=== PATIENT | female | born 1990 | race Caucasian/White ===

== ENCOUNTER 2022-06-27 11:45 | Outpatient (CLI) | payer BC, OTHER, SELFPAY ==
[2022-06-27 13:40] LABS: Chloride* 103 mmol/L (96-114)
[2022-06-27 13:41] LABS: Potassium* 4.1 mmol/L (3.6-5.1); Sodium* 136 mmol/L (135-149)
[2022-06-27 13:43] LABS: Creatinine* 0.8 mg/dL (0.5-1.5); Estimated Glomerular Filt Rate 100 ml/min
[2022-06-27 13:44] LABS: Blood Urea Nitrogen* 13 mg/dL (5-24); Calcium* 8.8 mg/dL (8.4-10.6); Carbon Dioxide* 24 mmol/L (20-32); Glucose* 82 mg/dL (60-115)
[2022-06-27 13:47] LABS: Basophils Absolute Auto 0.03 K/uL (0.00-0.30); Basophils Percent Auto 0.5 % (0.0-3.0); Eosinophils Absolute Auto 0.19 K/uL (0.00-0.50); Eosinophils Percent Auto 2.9 % (0.0-7.0); Hematocrit 39.2 % (33.0-51.0); Hemoglobin* 13.1 gm/dL (12.0-16.0); Immature Granulocytes Abs Auto 0.01 K/uL (0.00-0.30); Lymphocytes Absolute Auto 2.57 K/uL (0.90-2.90); Lymphocytes Percent Auto 39.1 % (20-44); Mean Corpuscular HGB Conc 33 gm/dL (32-36); Mean Corpuscular Hemoglobin 30 pg (26-34); Mean Corpuscular Volume 91 fL (80-100); Monocytes Percent Auto 5.8 % (0.0-11.0); Neutrophils Absolute Auto 3.39 K/uL (1.7-7.0); Neutrophils Percent Auto 51.5 % (42.0-72.0); Platelet Count* 243 K/uL (140-440); Red Blood Count 4.31 m/uL (4.00-5.20); White Blood Count* 6.57 K/uL (4.50-11.00)
[2022-06-27 13:49] LABS: C Reactive Protein* < 0.5 mg/dL (0.5-1.0)
[2022-06-27 13:56] LABS: Slide Review Reflex No
[2022-06-28 16:54] LABS: Rheumatoid Factor < 10 IU/mL (0-14)
[2022-06-29 06:56] LABS: Anti-Nuclear Ab(ANA)IgG ELISA None Detected (None Detected)
== END 2022-06-27 11:46 | disposition home or self-care (01) ==
PROVIDERS: PCP Family Medicine; Visit Provider Family Medicine
DX: R55 Syncope and collapse (principal); M25.50 Pain in unspecified joint; H53.2 Diplopia
CPT/HCPCS: 80048; 84443; 85025; 86039; 86140; 86431

== ENCOUNTER 2023-11-12 08:22 | Outpatient (CLI) | payer BC, SELFPAY | END 2023-11-12 08:23 | disposition home or self-care (01) | PROVIDERS: PCP Family Medicine; Visit Provider Family Medicine | DX: Z13.220 Encounter for screening for lipoid disorders (principal); R10.9 Unspecified abdominal pain | CPT/HCPCS: 80053; 80061 ==

== ENCOUNTER 2024-01-20 10:11 | Emergency (ER) | payer BC, SELFPAY ==
[2024-01-20 10:35] VITALS: BP 120/84; PULSE 90; RESP 18; TEMP 37.2; O2SAT 98; BMI 29.2
--- NOTE | 2024-01-20 11:33 | ED.GENADULT ---
HPI - General Adult General Date Seen: 01/20/24 Chief complaint: Abdominal Pain Stated complaint: right side abdominal pain,left side facial numbnes Time Seen by Provider: 01/20/24 11:12 Source: patient, RN notes reviewed and old records reviewed Mode of arrival: ambulatory Limitations: no limitations History of Present Illness HPI narrative: Patient is a 33-year-old woman who is here for a 2nd opinion regarding abdominal pain. She says that she had onset of what she thought was an appendix attack 8 days ago. She says she was seen at [facility] ER, had a CT scan, was told that maybe she had an ovarian cyst as the CT was normal, and was discharged. She had recurrence of right-sided abdominal pain on Saturday, which she says she has difficulty pinpointing exactly where in her right abdomen it was most severe but it was severe. She presented to the [facility] ER again, says that the CT was repeated. She also had a pelvic ultrasound. She was told that her appendix looked fine, ovaries were normal. She was told that her ?kidneys looked bad and that liver function tests were abnormal, but she says that she is unclear with the diagnosis was or what her follow-up was supposed to be. She said it was ?a terrible visit. She has continued to have some abdominal pain underneath her ribcage on the right. She is very concerned about possible problems with her liver or kidneys. She called her clinic today, she sees Dr. Monzon here, and they recommended that she be seen again in a different ER. She has not had vomiting or diarrhea, fevers, difficulty breathing or cough. She says that last night she developed numbness in a line kind of running along her temporal region on the left. She has headache which is mild, she gets migraines and typically takes ibuprofen and Tylenol if it is bad but this is not even bad enough to warrant that. She has had no rashes or facial weakness. Related Data Previous Rx's Medication Instructions Recorded bupropion HCl 300 mg 24 hr tablet, 300 mg PO QAM #90 tabs 11/12/23 extended release (Wellbutrin XL) lorazepam 1 mg tablet 1 mg PO TID PRN anxiety #20 tabs 12/13/23 Allergies Allergy/AdvReac Type Severity Reaction Status Date / Time Sulfa (Sulfonamide Allergy Intermediate Hives Verified 01/20/24 10:46 Antibiotics) Review of Systems Status of ROS: Reports: 6 or more systems reviewed and unremarkable except as noted in History and below PFSH PFS Medical History Right lateral epicondylitis ?M77.11 - Lateral epicondylitis, right elbow (ICD-10) Fibromyalgia ?M79.7 - Fibromyalgia (ICD-10) BRYSON (generalized anxiety disorder) ?F41.1 - Generalized anxiety disorder (ICD-10) Demyelinating disease ?G37.9 - Demyelinating disease of central nervous system, unspecified (ICD-10) History of methicillin resistant Staphylococcus aureus infection (07/23/19) ?Z86.14 - Personal history of Methicillin resistant Staphylococcus aureus infection (ICD-10) Surgical History History of elbow surgery (1995) ?Z98.890 - Other specified postprocedural states (ICD-10) Family History Family/Other Type 2 diabetes mellitus Multiple sclerosis Mother Multiple sclerosis Social History Narrative: , 3 kids, non-smoker, rare EtOH What is your current living situation?: I presently have a place to live Problems where you live: no known problems In the past 12 months, utilities in danger of being shut off: no In past 12 months, lack of transportation kept you from medical appts, meetings, work, or getting things needed for daily living: no In the past 12 mos, have been you worried that your food would run out before you had money to buy more?: never true In the past 12 mos, the food you bought just didn't last and you didn't have money to buy more?: never true Smoking Status: Never smoker How often does anyone, including family, friends and others, physically hurt you: never How often does anyone, including family, friends and others, insult or talk down to you: rarely How often does anyone, including family, friends and others, threaten you with harm: never How often does anyone, including family, friends and others, scream or curse at you: never Little interest or pleasure in doing things: not at all Feeling down, depressed, or hopeless: several days Exam Narrative: Exam Narrative: Vital signs as noted above. In general, an alert, well-appearing patient. Head: Normocephalic, atraumatic. Eyes: Pupils are equal reactive. Extraocular movements are full. Conjunctivae are normal. ENT: Mucous membranes are moist. Throat is normal. Neck: Supple without lymphadenopathy. Heart: Regular rate and rhythm. No murmur or rub. Lungs: Clear bilaterally. No increased work of breathing, crackles or wheezes. No CVA tenderness. Abdomen: Soft and nondistended. She has some tenderness to palpation in the right upper quadrant, no rebound guarding or rigidity, negative Dee's. Extremities: Well perfused. No edema. No calf tenderness. Pulses intact. Neurologic: Patient is alert and oriented to person and place. Speech is fluent. Face is symmetric. Sensation intact to light touch. Moves all extremities equally. Affect: Anxious appear Skin: Warm and dry. Well perfused. No rashes. Const: Vital Signs, click to edit/add: Vital Signs - 24 hr 01/20/24 10:35 Temperature 99.0 F Pulse Rate [Right Pulse Oximeter] 90 Respiratory Rate 18 Blood Pressure [Ri ght Upper Arm] 120/84 Pulse Oximetry 98 Oxygen Delivery Me thod Room Air Documenting provider has reviewed patient's vital signs: yes Course Course ED Course: Will try to get records from [place] from her visit on Saturday to see exactly what she is talking about with her liver and kidneys. For now, will repeat some labs, CE were her LFTs and renal function are today. Doubt need for additional imaging based on [address] scans and ultrasound in the past week. I reviewed her labs from [place], overall these are normal with the exception of elevated liver enzymes. Her UA had 11-25 white blood cells, many bacteria but also many squames. A repeat UA today is entirely normal. Her creatinine was 1 which is outside of their normal reference range but certainly not concerning. Looking back, she had hepatitis a couple of years ago which time she had significant elevations of her AST and ALT. She has had a CT scan twice and the liver has been noted to be normal. She does not have a gallbladder. She does have an elevated ALT today of 393. AST is 116. Bilirubin and alk-phos are normal. CRP is normal, lipase is normal. INR is normal. Hemoglobin is 13. I reviewed all of her labs including the labs from [place] as well as today's labs with her. I do not think there is a lot of benefit to additional imaging today given normal findings in the past week. I do think she would benefit from follow-up with GI. It does not seem as if she has ever had follow-up with them although she may well have seen them when she was in the hospital at [place] 2 years ago. I do not have those records and she does not know who she saw. I did add on a hepatitis panel, no obvious risk factors in her history for hepatitis a, they presumably would have check for B and C a couple of years ago. She denies significant recent Tylenol. She does not drink significantly, and the pattern of elevations would be atypical for alcoholic liver disease. I have given her the phone number for Dr. Lee [facility] and I have asked her to call tomorrow to arrange for follow-up. If she has severe worsening pain, high fevers, jaundice or scleral icterus, return to the emergency department. She seems comfortable with that plan. Given that her headache is not severe enough to warrant even ibuprofen or Tylenol, I think the likelihood of this being anything serious is low. She is primarily concerned about her liver enzymes. Vital Signs Vital signs: Initial Vital Signs Temperature 99.0 F 01/20/24 10:35 Temperature Source Temporal Artery Scan 01/20/24 10:35 Pulse Rate 90 01/20/24 10:35 Pulse Rhythm Regular 01/20/24 10:35 Respiratory Rate 18 01/20/24 10:35 Blood Pressure 120/84 01/20/24 10:35 Blood Pressure Mean 96 01/20/24 10:35 Blood Pressure Position Sitting 01/20/24 10:35 Pulse Oximetry 98 01/20/24 10:35 Oxygen Delivery Method Room Air 01/20/24 10:35 Vital Signs Temperature 99.0 F 01/20/24 10:35 Pulse Rate 90 01/20/24 10:35 Respiratory Rate 18 01/20/24 10:35 Blood Pressure 120/84 01/20/24 10:35 Pulse Oximetry 98 01/20/24 10:35 Oxygen Delivery Method Room Air 01/20/24 10:35 Temperature 99.0 F 01/20/24 10:35 Pulse Rate 90 01/20/24 10:35 Respiratory Rate 18 01/20/24 10:35 Blood Pressure 120/84 01/20/24 10:35 Pulse Oximetry 98 01/20/24 10:35 Oxygen Delivery Method Room Air 01/20/24 10:35 Medical Decision Making Lab Data Labs: Lab Results 01/20/24 01/20/24 01/20/24 Range/Units 11:00 11:01 11:33 WBC 4.96 (4.50-11.00) K/uL RBC 4.32 (4.00-5.20) m/uL Hgb 13.0 (12.0-16.0) gm/dL Hct 38.0 (33.0-51.0) % MCV 88 (80-100) fL MCH 30 (26-34) pg MCHC 34 (32-36) gm/dL RDW Coeff of Ken 11.9 (11.5-15.5) % Plt Count 248 (140-440) K/uL Neut % (Auto) 55.8 (42.0-72.0) % Lymph % (Auto) 34.3 (20-44) % Howell % (Auto) 6.7 (0.0-11.0) % Eos % (Auto) 2.6 (0.0-7.0) % Baso % (Auto) 0.4 (0.0-3.0) % Neut # (Auto) 2.77 (1.7-7.0) K/uL Lymph # (Auto) 1.70 (0.90-2.90) K/uL Howell # (Auto) 0.30 (0.00-0.90) K/UL Eos # (Auto) 0.13 (0.00-0.50) K/uL Baso # (Auto) 0.02 (0.00-0.30) K/uL Abs Immat Gran (auto) 0.01 (0.00-0.30) K/uL Imm/Tot Granulo (auto) 0.2 % INR 0.93 (0.91-1.10) Sodium 138 (135-149) mmol/L Potassium 3.7 (3.6-5.1) mmol/L Chloride 108 (96-114) mmol/L Carbon Dioxide 23 (20-32) mmol/L Anion Gap 7 (7-15) mEq/L BUN 10 (5-24) mg/dL Creatinine 0.8 (0.5-1.5) mg/dL Estimated Creat Clear 85.56 Estimated GFR 99 ml/min Glucose 77 (60-115) mg/dL Calcium 8.9 (8.4-10.6) mg/dL Total Bilirubin 0.5 (0.1-1.5) mg/dL Direct Bilirubin 0.2 (0.0-0.5) mg/dL AST 116 H (12-35) U/L ALT 393 H (4-35) U/L Alkaline Phosphatase 87 (40-150) U/L C-Reactive Protein 0.7 (0.5-1.0) mg/dL Total Protein 7.0 (6.0-8.3) g/dL Albumin 4.2 (3.3-5.0) g/dL Lipase 97 (23-300) U/L Urine Color Light yellow Cancelled (Yellow) Urine Appearance Slightly Cloudy A Cancelled (Clear) Urine pH 6.5 Cancelled (5.0-8.5) Ur Specific [place] 1.015 Cancelled (1.000-1.030) Urine Protein Negative Cancelled (Negative) Urine Glucose (UA) Negative Cancelled (Negative) Urine Ketones Negative Cancelled (Negative) Urine Blood Negative Cancelled (Negative) Urine Nitrite Negative Cancelled (Negative) Urine Bilirubin Negative Cancelled (Negative) Urine Urobilinogen 1.0 Cancelled (0.2-1.0) Ur Leukocyte Esterase Trace A Cancelled (Negative) Urine RBC 0-2 (0-2) Urine WBC 0-2 (0-5) Ur Squamous Epith Cells Moderate A (None-Few) Urine Bacteria Few A (None) Urine HCG, Qual Negative (Negative) Discharge Plan Discharge Clinical Impression: Hepatitis Patient Disposition: Home, Self-Care Condition: Stable Additional Instructions: I would recommend that you call to arrange follow-up with Dr. Lee, who is a health promotion officer here in [place]. The phone number for his nurse is [phone]. You can call this number tomorrow, he is not in clinic today. I was not able to talk with him, but I did talk with his nurse about seeing you in follow-up. If at any time you have severe pain, high fevers, yellowing of your skin her eyes, return to the emergency department. Ibuprofen okay, avoid Tylenol for now. Prescriptions: No Action bupropion HCl [Wellbutrin XL] 300 mg tablet extended release 24 hr 300 mg PO QAM Qty: 90 1RF lorazepam 1 mg tablet 1 mg PO TID PRN (Reason: anxiety) Qty: 20 0RF Follow Up/Referrals: Remi Monzon MD [Primary Care Provider] - Stand Alone Forms: [employer] Info Instructions
[2024-01-20 11:39] LABS: Appearance Urine Slightly Cloudy (Clear); Bilirubin Urine Negative (Negative); Blood Urine Negative (Negative); Color Urine Light yellow (Yellow); Glucose Urine Negative (Negative); Ketones Urine Negative (Negative); Specific Gravity Urine 1.015 (1.000-1.030); pH Urine 6.5 (5.0-8.5)
[2024-01-20 11:40] LABS: Bacteria Urine Few; Leukocyte Esterase Urine Trace (Negative); Nitrite Urine Negative (Negative); Protein Urine Negative (Negative); RBC Urine 0-2 (0-2); Squamous Epithelial Cell Urine Moderate (None-Few); WBC Urine 0-2 (0-5)
[2024-01-20 11:41] LABS: Basophils Absolute Auto 0.02 K/uL (0.00-0.30); Basophils Percent Auto 0.4 % (0.0-3.0); Eosinophils Absolute Auto 0.13 K/uL (0.00-0.50); Eosinophils Percent Auto 2.6 % (0.0-7.0); Immature Granulocytes Abs Auto 0.01 K/uL (0.00-0.30); Immature Granulocytes Pct Auto 0.2 %; Lymphocytes Percent Auto 34.3 % (20-44); Mean Corpuscular HGB Conc 34 gm/dL (32-36); Mean Corpuscular Hemoglobin 30 pg (26-34); Mean Corpuscular Volume 88 fL (80-100); Monocytes Percent Auto 6.7 % (0.0-11.0); Neutrophils Absolute Auto 2.77 K/uL (1.7-7.0); Neutrophils Percent Auto 55.8 % (42.0-72.0); Platelet Count* 248 K/uL (140-440); RDW Coefficient of Variation % 11.9 % (11.5-15.5); Red Blood Count 4.32 m/uL (4.00-5.20); White Blood Count* 4.96 K/uL (4.50-11.00)
[2024-01-20 11:42] LABS: Ur HCG Qualitative* Negative (Negative)
[2024-01-20 11:42] LABS: Slide Review Reflex No
[2024-01-20 11:54] LABS: Albumin* 4.2 g/dL (3.3-5.0); Chloride* 108 mmol/L (96-114)
[2024-01-20 11:55] LABS: Potassium* 3.7 mmol/L (3.6-5.1); Sodium* 138 mmol/L (135-149)
[2024-01-20 11:57] LABS: Alanine Aminotransferase* 393 U/L (4-35); Alkaline Phosphatase* 87 U/L (40-150); Aspartate Amino Transferase* 116 U/L (12-35); Bilirubin Direct* 0.2 mg/dL (0.0-0.5); Bilirubin Total* 0.5 mg/dL (0.1-1.5); Creatinine* 0.8 mg/dL (0.5-1.5); Est. Creatinine Clearance* 85.56; Estimated Glomerular Filt Rate 99 ml/min; Lipase* 97 U/L (23-300)
[2024-01-20 11:58] LABS: Anion Gap 7 mEq/L (7-15); Blood Urea Nitrogen* 10 mg/dL (5-24); Carbon Dioxide* 23 mmol/L (20-32); Glucose* 77 mg/dL (60-115)
[2024-01-20 11:59] LABS: Calcium* 8.9 mg/dL (8.4-10.6)
[2024-01-20 12:01] LABS: C Reactive Protein* 0.7 mg/dL (0.5-1.0)
[2024-01-20 12:42] LABS: INR 0.93 (0.91-1.10); Prothrombin Time 13.1 Seconds
[2024-01-21 17:45] LABS: Hep A Ab, IgM Negative (Negative); Hep B Core Ab, IgM Negative (Negative); Hep B Surface Antigen Negative (Negative); Hep C Ab by CIA Index 0.05 IV; Hep C Ab by CIA Interp Negative (Negative)
== END 2024-01-20 13:04 | disposition home or self-care (01) ==
PROVIDERS: Emergency Provider Emergency Medicine; PCP Family Medicine
DX: K75.9 Inflammatory liver disease, unspecified (principal)
CPT/HCPCS: 36415; 80048; 80074; 80076; 81001; 81003; 81025; 83690; 85025; 85610; 86140; 87086; 99283; 99284

== ENCOUNTER 2024-10-02 13:34 | Outpatient (CLI) | payer BC, SELFPAY ==
--- OUTSIDE RECORDS SUMMARY | 2024-10-02 13:37 | XMS_ITS | Referral Summary ---
Author Organization [facility] Address [address] [place] [address] Care Team Providers Care Curb And Gutter Laborer Name Role Phone None Reported, Pcp Primary Care Provider Unavail able Source Comments Patient records contain information from all sites at [facility]. For routine questions regarding patient records, call [phone] during business hours, M-F 8:00 AM - 5:00 PM Central Time. Record requests for emergency care only can be directed to [phone] at any time.[facility] Encounters Date Type Department Care Team Description 09/11/2024 4:18 AM CDT - 09/11/2024 5:32 AM CDT Emergency [facility] [address] [place] [phone] Discharge Disposition: Home or Self Care 07/06/2024 4:00 PM CDT Office Visit Department of Obstetrics and Gynecology in [place], [place] [address] [phone] Jaylen Buchanan Jr., M.D. Follow Up Examination Postoperative Visit (Primary Dx) from Last 3 Months Allergies Active Allergy Reactions Criticality Noted Date Comments Cephalexin Hives (Reselect Reaction) 01/30/2007 Sulfa (Sulfonamide Antibiotics) Hives (Reselect Reaction) 04/08/2012 Medications * This document contains information received from the source organization and may not represent a complete record from that organization. buPROPion XL (WELLBUTRIN XL) 300 mg 24 hr tablet Take 1 tablet by mouth every morning. 11/12/2023 Active UNABLE TO FIND 1 each daily. Med Name: hair, skin and nails Active ibuprofen (MOTRIN) 600 mg tablet TAKE 1 TABLET BY MOUTH EVERY 6 HOURS MAX OF 3200 MG IN 24 HOURS Active Active Problems Patient Care Coordination No te Formatting of this note migh t be different from the original. OB education completed. Pre-reg completed at [facility]. LMP:10/29/18 EDC:08/02/19 (changed by 8 4/7 wk us) Brandon provider: Carlos applications analyst provider FOB involved: Sera Tee Rubella Equivocal - Plan MMR 2 History of MRSA labial abscess 06/02/2015 and MRSA abdominal wall abscess 09/06/2015 - Need negative culture x 2 - (02/17/2019) MRSA culture: negative Buchanan patient OB labs O RH factor:Positive Antibody screen: Negative HBsAg: Negative HIV: Negative Syphilis: Negative Rubella: Equivocal TSH: 0.9 Hgb: 12.7 Hct: 37.4 Platelets: 245 Chlamydia: Negative Gonorrhea: Negative MRSA culture: Negative (02/17/2019) Pap smear: NILM (11/06/2016) Glucose screen: GBS culture: Problem Noted Date Diagnosed Date Abdominal Pain 04/03/2024 Demyelinating Disease Central Nervous System Assessment & Plan (04/03/2024 10:29 AM CDT): Per MRI results on 07/09/2022: Impression: 1. No acute intracranial abnormality. 2. Multiple scattered foci of T2 prolongation in the supratentorial subcortical matter are nonspecific. Differential considerations include sequela of migraine headaches,, inflammation or demyelination. Patient states her mother has myelin oligodendrocyte glycoprotein (MOG), so there was concern she may have it. Testing were initiated, but she stopped going because of too many testing demands. Epicondylitis Lateral Right 04/03/2024 Fibromyalgia 04/03/2024 Palpitations 04/03/2024 Anxiety 04/03/2024 Depression Major Recurrent Full Remission 2023 Abnormal Pap Smear Cervix 03/03/2024 Overview (04/27/2024): Ascus with positive HPV but-16 18 and 45. Previous Pap smear had been negative with positive HPV but negative high-risk subtypes. 03/03/2024: Colposcopy shows 1 area of mildly white epithelium with some possible increased vascularity versus a nabothian cyst. This is biopsied. Rest of transformation zone appears to be normal. We will contact patient with biopsy results no intercourse for 1 week. 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 Neg ECC and external margins. 04/13/24: healing well. TLH with TOT on 04/14/24. No residual dysplasia on path. Needs continued paps. Sore Throat 11/27/2021 Hypokalemia 02/26/2021 Leukopenia 02/26/2021 Pain Pelvic Female 01/23/2021 Overview (03/03/2024): Patient would longstanding history of pelvic pain we have discussed multiple options with her. Also stress incontinence and heavy bleeding. Will try continuous therapy control pills for the next month or so and see how she does. Also more aggressive with Anaprox pain medication. Surgical options include laparoscopy with endometrial ablation and mid urethral sling probable placement of IUD. The other option would be a laparoscopy with hysterectomy. She will follow up in 1 month and we will assess these possibilities. Patient seems comfortable with this plan and will call us with any concerns. Risks and benefits as well as possible alternative of hysterectomy of minimally invasive surgery have been discussed. Abnormal pap> colposcopy 03/03/24. Tentative surgery as above scheduled with TOT for 04/15/24. 03/03/2024 appointment: Colposcopy done. Patient on continuous control pills and has been doing somewhat better. She still has anterior pelvic pain with intercourse fairly consistently. She may wish to delay surgery due to her being busy depending on results of colposcopy and how she is doing with control pills. Options include mid urethral sling and staying on control pills versus a diagnostic laparoscopy with mid urethral sling versus diagnostic laparoscopy with mid urethral sling and global endometrial ablation. Still option for total laparoscopic hysterectomy as is currently scheduled depending on patient's symptoms and results of colposcopy. Incontinence Urinary Stress Female 01/23/2021 Overview (04/27/2024): Sling 04/14/24. 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 06/23/2019 Overview (02/16/2019): Right labia abscess with +MRSA 06/02/2015 Abdominal skin abscess with culture +MRSA 09/06/2015 Abscess Labia 06/05/2015 02/16/2019 Overview (02/16/2019): Right labia abscess with +MRSA culture Anxiety Disorder Unspecified 04/08/2012 02/16/2019 Dermatitis Atopic 12/05/2011 02/16/2019 Cervicitis Chlamydia 05/11/2011 019 Depression Anxiety 03/29/2009 9 Iliotibial Band Syndrome 03/24/200711/2018 Immunizations Name Administration Dates Next Due 4vHPV (discontinued) 03/31/2008,01/30/2007 9vHPV 09/23/2012,03/31/2008,01/30/2007 HepB Pediatric/Adolescent 02/12/2001,,08/12/2000,1999 HepB, Unspecified 02/12/2001,08/12/2000 Influenza TIV (IM) 09/23/2012 Influenza, Seasonal, Injectable 09/23/2012 Influenza, Unspecified 08/26/2013 MMR 07/24/2019,01/23/2014,08/12/2000 Td (Adult), adsorbed 10/05/2003 Td Preservative Free (TENIVA C, DECAVAC) 10/05/2003 Tdap 08/07/2019, 9,05/07/2018,2011 influenza vaccine quad (FLUZONE/FLUARIX) (6 months and older)(PF) 09/19/2022,09/03/2019,10/17/2018,2017,10/01/2016,09/22/2015,09/23/2012 Social History Tobacco Use Types Packs/Day Years Used Date Smoking Tobacco: Never Smokeless Tobacco: Never Tobacco Cessation:Counseling Given: Not Answered Alcohol Use Standard Drinks/Week Comments Yes 0 (1 standard drink = 0.6 oz pur e alcohol) 2 drinks a month [facility] Howbuyities Answer Date Recorded In the past 12 months has e [employer], gas, oil, or water [employer] threatened to shut off services in your home? No 01/27/2024 Humiliation, Afraid, Rape, and Kick questionnair e Answer Date Recorded Within the last year, have y ou been afraid of your partner or ex-partner? No 09/14/2022 Within the last year, have y ou been humiliated or emotionally abused in other ways by your partner or ex-partner? No Within the last year, have y ou been kicked, hit, slapped, or otherwise physically hurt by your partner or ex-partner? No 09/14/2022 Within the last year, have y ou been raped or forced to have any kind of sexual activity by your partner or ex-partner? No 09/14/2022 Social Connection and Isolation Panel [NHANES] A nswer Date Recorded In a typical week, how many times do you talk on the phone with family, friends, or neighbors? Once a week 09/14/20 How often do you get togethe r with friends or relatives? Once a week 09/14/2022 How often do you attend chur ch or anabaptism services? Never 09/14/2022 Do you belong to any clubs o r organizations such as sabianist groups, unions, fraternal or athletic groups, or school groups? Yes 09/14/2022 How often do you attend meet ings of the clubs or organizations you belong to? 1 to 4 times per year 09/14/2022 Are you , , di vorced, , never , or living with a partner? 09/14/2022 AUDIT-C Answer Date Recorded Q1: How often do you have a drink containing alc ohol? Monthly or less 09/14/2022 Q2: How many drinks containi ng alcohol do you have on a typical day when you are drinking? 3 or 4 09/14/2022 Q3: How often do you have si x or more drinks on one occasion? Never 09/14/2022 Overall Financial Resource Strain (CARDIA) Answe r Date Recorded How hard is it for you to pa y for the very basics like food, housing, medical care, and heating? Not hard at all 09/14/2022 PHQ-2 Answer Date Recorded PHQ-2 Score 3 06/17/2024 [facility] - Occupational Stress Questionnaire Answer Date Recorded Do you feel stress - tense, restless, nervous, or anxious, or unable to sleep at night because your mind is troubled all the time - these days? To some extent 09/14/2022 Exercise Vital Sign Answer Date Recorde d On average, how many days pe r week do you engage in moderate to strenuous exercise (like a brisk walk)? 3 days 01/27/2024 On average, how many minutes do you engage in exercise at this level? 30 min 01/27/2024 Hunger Vital Sign Answer Date Recorded Within the past 12 months, y ou worried that your food would run out before you got the money to buy more. Never true 01/27/20 24 Within the past 12 months, t he food you bought just didn't last and you didn't have money to get more. Never true 01/27/2024 PRAPARE - Transportation Answer Date Re corded In the past 12 months, has l ack of transportation kept you from medical appointments or from getting medications? No 01/16 In the past 12 months, has l ack of transportation kept you from meetings, work, or from getting things needed for daily living? No 01/27/2024 Depression Answer Date Recor ded PHQ-9 Total Score (max 27) 15 06/17 Nutrition Answer Date Recorded On average, how many serving s of fruits and vegetables do you eat per day (serving size is equal to 1 cup or approximately the size of a tennis ball)? 3-5 01/27/2024 Dental Answer Date Recorded Dental: Regular Dentist No 09/14/20 Employment Answer Date Recorded Employment status Employed and actively working without restrictions 01/27/2024 Housing Stability Answer Date Recorded What is your living situation today? I have a [facility] place to live 01/27/2024 Education Answer Date Recorded What is the highest level of school you have completed or the highest degree you have received? Some college, no degree 04/23/2019 Comments No Sex and Gender Information Value Date Recorded Sex Assigned at Female 09/14/2022 7:57 AM CDT Legal Sex Female 10:48 AM CORPORATE FITNESS PROGRAM COORDINATOR Gender Identity Female 01/26/2019 8:30 AM CDT Sexual Orientation Straight 01/26/2019 8: 30 AM CDT Last Filed Vital Signs Vital Sign Reading Time Taken Comments Blood Pressure 124/85 07/06/2024 3:26 PM CDT Pulse 90 07/06/2024 3:26 PM CDT Temperature 36.6 ??C (97.9 ??F) 05/04/2024 1 1:43 AM CDT Respiratory Rate 18 01/24/2024 10:2 3 PM CORPORATE FITNESS PROGRAM COORDINATOR Oxygen Saturation 98% 01/24/2024 8:30 PM CORPORATE FITNESS PROGRAM COORDINATOR Inhaled Oxygen Concentration - - Weight 79.7 kg (175 lb 11.3 oz) 07/06/2024 3:26 PM CDT Height 163.6 cm (5' 4.41) 04/03/2024 8:34 AM CD T Body Mass Index 29.78 04/03/2024 8:34 AM CDT Plan of Treatment Not on file Procedures Procedure Name Priority Date/Time Associated Diagnosis Comments HPV WITH GENOTYPING, PCR, THINPREP Routine 01/31/2024 1:14 PM CDT HCV AB SCRN W/REFLEX TO HCV PCR, S Routine 09/24/2022 7:26 AM CORPORATE FITNESS PROGRAM COORDINATOR Migraine Headache HIV-1/-2 AG AND AB SCREEN, PLASMA Routine 09/24/2022 7:25 AM CORPORATE FITNESS PROGRAM COORDINATOR Migraine Headache LIPID PANEL, S Routine 03/04/2014 2:40 PM CDT from Last 3 Months or Most Recently Relevant to Health Maintenance Results * (ABNORMAL) HPV with Genotyping, PCR, ThinPrep (01/31/2024 1:14 PM CDT) HPV with Genotyping, ThinPrep, PCR Positive(A) Negative 02/04/2024 11:38 AM CDT [facility] Comment: Positive for high risk HPV by nucleic acid amplification. Positive for one or more of the following high risk types: 16, 18, 31, 33, 35, 39, 45, 51, 52, 56, 58, 59, 66, and 68. See genotyping result. HPV High Risk type 16, PCR Negative Negative 02/04/2024 11:38 AM CDT [facility] HPV High Risk type 18/45, PCR Negative Negative 02/04/2024 11:38 AM CDT [facility] 01/31/2024 1:14 PM CDT 02/03/2024 7:19 AM CDT us Jaylen Buchanan Jr., M.D. LAB MICROBIOLOGY - GEN ERAL ORDERABLES Final Result [facility] [address] [place] [address], [facility] [address] [place] [address] * HCV Ab Scrn w/Reflex to HCV PCR, Serum (09/24/2022 7:26 AM CORPORATE FITNESS PROGRAM COORDINATOR) HCV Ab Screen, S Negative Negative 09/24/2022 12:01 PM CORPORATE FITNESS PROGRAM COORDINATOR [facility] Comment:Layakz-qw-eabdhd rat io is <1.00. Blood (Blood, Venous) 09/24/2022 7:26 AM CORPORATE FITNESS PROGRAM COORDINATOR 09/24/2022 10:30 AM CORPORATE FITNESS PROGRAM COORDINATOR us Kassi Velázquez M.D. LAB MICROBIOLOGY - BLOOD OR DERABLES Final Result [facility] [address] [place] [id number] [facility] [address] [place] [id number] * HIV-1/-2 Ag and Ab Screen, Plasma (09/24/2022 7:25 AM CORPORATE FITNESS PROGRAM COORDINATOR) Pathologist [facility] HIV-1/-2 Ag and Ab Screen, P Negative Negative 09/24/2022 11:59 AM CORPORATE FITNESS PROGRAM COORDINATOR [facility] Comment: Negative result does not rule out HIV infection. If exposure to HIV infection occurred <14 days ago, contact the laboratory to request addition of HIV-1 RNA detection / quantification test (HIVQN). Blood (Blood, Venous) 09/24/2022 7:25 AM CORPORATE FITNESS PROGRAM COORDINATOR 09/24/2022 10:54 AM CORPORATE FITNESS PROGRAM COORDINATOR Kassi Velázquez M.D. LAB MICROBIOLOGY - BLOOD OR DERABLES Final Result [facility] [address] [place] [address] [facility] [address] [place] [address] * Lipid Panel (03/04/2014 2:40 PM CDT) [facility] Cholesterol, Total 161 0 - 200 MGDL POWERCHART HX HDL 59.0 40.0 - 60.0 MGDL POWERCHART Triglycerides 119 0 - 150 MGDL POWERCHART Calculated LDL 78 0 - 100 MGDL POWERCHART Blood 03/04/2014 2:40 PM CDT us Jaylen Buchanan Jr., M.D. LAB BLOOD ADD-ON Final Result POWERCHART from Last 3 Months or Most Recently Relevant to Health Maintenance Insurance [facility] Care Teams Curb And Gutter Laborer Relationship Specialty Start Date End Date None Reported, Pcp PCP - General Family Medicine 01/24/24
--- OUTSIDE RECORDS SUMMARY | 2024-10-02 13:37 | XMS_ITS | Encounter Summary ---
Author Organization [facility] Address [address] [place] [address] Care Team Providers Care Head Of Marketing Analytics Name Role Phone None Reported, Pcp Primary Care Provider Unavail able Reason for Visit * Reason Comments Eye Problem Encounter Details Date Type Department Care Team ([facility] st Contact Info) Description 09/11/2024 4:18 AM CDT - 09/11/2024 5:32 AM CDT Emergency [facility] [address] [place] [phone] Discharge Disposition: Home or Self Care Social History Tobacco Use Types Packs/Day Years Used Date Smoking Tobacco: Never Smokeless Tobacco: Never Alcohol Use Standard Drinks/Week Comments Yes 0 (1 standard drink = 0.6 oz pur e alcohol) 2 drinks a month [facility] Utilities Answer Date Recorded In the past 12 months has e [employer], gas, oil, or water [employer] threatened to shut off services in your [...] 09/14/2022 How often do you attend chur or latter day services? Never 09/14/2022 Do you belong to any clubs o r organizations such as pentecostalism groups, unions, fraternal or athletic groups, or [...] Answer Date Recorded PHQ-2 Score 3 06/17/2024 [facility] - Occupational Stress Questionnaire Answer Date [...] your living situation today? I have a [facility] place to live 01/27/2024 Education Answer Date Recorded What is the highest level of school you have completed or the highest degree you have received? 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 11/12/2023 ibuprofen (MOTRIN) 600 mg tablet TAKE 1 TABLET BY MOUTH EVERY 6 HOURS MAX OF 3200 MG IN 24 HOURS UNABLE TO FIND 1 each daily. Med Name: hair, skin and nails documented as of this encounter Plan of Treatment Not on file documented as of this encounter Visit Diagnoses Not on filedocumented in this encounter Additional Health Concerns Assessment Noted Time PHQ-9 Depression Total Score: 15 024 2:01 PM CDT documented as of this encounter Care Teams Head Of Marketing Analytics Relationship Specialty Start Date End Date None Reported, Pcp PCP - General Family Medicine 01/24/24 documented as of this encounter
--- OUTSIDE RECORDS SUMMARY | 2024-10-02 13:37 | XMS_ITS | Clinical Summary ---
Author Organization [facility] Address [address] [place] [address] Care Team Providers Care Senior Hardware Engineer Name Role Phone None Reported, Pcp Primary Care Provider Unavail able Source Comments Patient records contain information from all sites at [facility]. For routine questions regarding patient records, call [phone] during business hours, M-F 8:00 AM - 5:00 PM Central Time. Record requests for emergency care only can be directed to [phone] at any time.[facility] Allergies Active Allergy Reactions Criticality Noted Date [...] original. OB education completed. Pre-reg completed at [facility]. 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 Follow Up Examination Postoperative Visit (Primary Dx) from Last 3 Months Immunizations Name Administration Dates Next Due 4vHPV (discontinued) 03/31/2008,01/30/2007 9vHPV 09/23/2012,03/31/2008,01/30/2007 HepB Pediatric/Adolescent 02/12/2001,,08/12/2000,1999 HepB, Unspecified 02/12/2001,08/12/2000 Influenza TIV (IM) 09/23/2012 Influenza, Seasonal, Injectable 09/23/2012 Influenza, Unspecified 08/26/2013 MMR 07/24/2019,01/23/2014,08/12/2000 Td (Adult), adsorbed 10/05/2003 Td Preservative Free (TENIVA C, DECAVAC) 10/05/2003 Tdap 08/07/2019, 9,05/07/2018,2011 influenza vaccine quad (FLUZONE/FLUARIX) (6 months and older)(PF) 09/19/2022,09/03/2019,10/17/2018,2017,10/01/2016,09/22/2015,09/23/2012 Family History Medical History Relation Name Comments Asthma Daughter 1 [place] Lique No Known Problems Daughter 2 [place] Unknown Maternal Grandfather ? Thyroid dysfunction Maternal Grandmother Serina Other - Neurologic Mother Tiffany Myelin ol igodentocyte glycoprotein (MOG) Pancreatic cancer Paternal Grandfather Gino Diaz No Known Problems Son Tobin Relation Name Status Comments Daughter 1 [place] Lique Alive Daughter 2 [place] Alive Father Tad Alive Maternal Grandfather ? Maternal Grandmother Serina Mother Tiffany Alive Paternal Grandfather Gino Diaz Paternal Grandmother Liss Alive Sister Alessandra Alive Son Tobin Alive Social History Tobacco Use Types Packs/Day Years Used Date Smoking Tobacco: Never Smokeless Tobacco: Never Tobacco Cessation:Counseling Given: Not Answered Alcohol Use Standard Drinks/Week Comments Yes 0 (1 standard drink = 0.6 oz pur e alcohol) 2 drinks a month [facility] [employer] Answer Date Recorded In the past 12 months has e [employer], gas, oil, or water [employer] threatened to shut off services in your [...] friends, or neighbors? Once a week 09/14/20 22 How often do you get togethe r with friends or relatives? Once a week 09/14/2022 How often do you attend chur ch or methodist services? Never 09/14/2022 Do you belong to any clubs o r organizations such as druze groups, unions, fraternal or athletic groups, or [...] Answer Date Recorded PHQ-2 Score 3 06/17/2024 [facility] of Occupat ional Health - Occupational Stress [...] your living situation today? I have a [facility] place to live 01/27/2024 Education Answer Date Recorded What is the highest level of school you have completed or the highest degree you have received? Some college, no degree 04/23/2019 Comments No Sex and Gender Information Value Date Recorded Sex Assigned at Female 09/14/2022 7:57 AM CDT Legal Sex Female 10:48 AM CONTROLLER OPERATIONS AND HR MANAGER Gender Identity Female 01/26/2019 8:30 AM CDT Sexual Orientation Straight 01/26/2019 8: 30 AM CDT Last Filed Vital Signs Vital Sign Reading Time Taken Comments Blood Pressure 124/85 07/06/2024 3:26 PM CDT Pulse 90 07/06/2024 3:26 PM CDT Temperature 36.6 ??C (97.9 ??F) 05/04/2024 1 1:43 AM CDT Respiratory Rate 18 01/24/2024 10:2 3 PM CONTROLLER OPERATIONS AND HR MANAGER Oxygen Saturation 98% 01/24/2024 8:30 PM CONTROLLER OPERATIONS AND HR MANAGER Inhaled Oxygen Concentration - - Weight 79.7 kg (175 lb 11.3 oz) 07/06/2024 3:26 PM CDT Height 163.6 cm (5' 4.41) 04/03/2024 8:34 AM CD T Body Mass Index 29.78 04/03/2024 8:34 AM CDT Plan of Treatment Health Maintenance Due Date Last Done Comments Hepatitis B Vaccines (4 of 4 - 4-dose series) 04/09/2001 02/12/2001, 02/12/2001, 02/12/2001, Additional history exists Lipid (Cholesterol) Screening 03/04/2019 03/04/2014 COVID-19 Vaccine ( season) 2024 11/20/2021, 04/06/2021 Influenza Vaccine (#1) 2024 , 09/03/2019, 10/17/2018, Additional history exists Depression Monitoring (PHQ-9) 10/17/2024 06/17/2024 DTaP,Tdap,and Td Vaccines (6 - Td or Tdap) 08/07/2029 08/07/2019, 05/07/2019, 05/07/2018, Additional history exists HPV Vaccines Completed 09/23/2012, 03/18, 03/31/2008, Additional history exists HIV Screening Completed 09/24/2022, 05/2019, 06/02/2015, Additional history exists Hepatitis C Screening Completed 09/24/2022 Cervical/Vaginal Cancer Screening Discontinued 01/31/2024, 01/31/2024, 08/27/2019, Additional history exists Depression Monitoring (PHQ-9 for quality tracking) Completed 04/03/2024 IPV Vaccines Aged Out No longer eligi ble based on patient's age to complete this topic Pneumococcal vaccine (0-64 years) Aged Out No longer eligible based on patient's age to complete this topic Procedures Procedure Name Priority Date/Time Associated Diagnosis Comments HPV WITH GENOTYPING, PCR, THINPREP Routine 01/31/2024 1:14 PM CDT HCV AB SCRN W/REFLEX TO HCV PCR, S Routine 09/24/2022 7:26 AM CONTROLLER OPERATIONS AND HR MANAGER Migraine Headache HIV-1/-2 AG AND AB SCREEN, PLASMA Routine 09/24/2022 7:25 AM CONTROLLER OPERATIONS AND HR MANAGER Migraine Headache LIPID PANEL, S Routine 03/04/2014 [...] CDT 02/03/2024 7:19 AM CDT us Jaylen Bucahnan Jr., M.D. LAB MICROBIOLOGY - GEN ERAL ORDERABLES Final Result [facility] [address] [place] [address], [facility] [address] [place] [address] * HCV Ab Scrn w/Reflex to HCV PCR, Serum (09/24/2022 7:26 AM CONTROLLER OPERATIONS AND HR MANAGER) [facility] HCV Ab Screen, S Negative Negative 09/24/2022 12:01 PM CONTROLLER OPERATIONS AND HR MANAGER [facility] Comment:[id number] rat io is <1.00. Blood (Blood, Venous) 09/24/2022 7:26 AM CONTROLLER OPERATIONS AND HR MANAGER 09/24/2022 10:30 AM CONTROLLER OPERATIONS AND HR MANAGER us Kassi Velázquez M.D. LAB MICROBIOLOGY - BLOOD OR DERABLES Final Result [facility] [address] [place] [address] [facility] [address] [place] [address] * HIV-1/-2 Ag and Ab Screen, Plasma (09/24/2022 7:25 AM CONTROLLER OPERATIONS AND HR MANAGER) [facility] HIV-1/-2 Ag and Ab Screen, P Negative Negative 09/24/2022 11:59 AM CONTROLLER OPERATIONS AND HR MANAGER [facility] Comment: Negative result does not rule out HIV infection. If exposure to HIV infection occurred <14 days ago, contact the laboratory to request addition of HIV-1 RNA detection / quantification test (HIVQN). Blood (Blood, Venous) 09/24/2022 7:25 AM CONTROLLER OPERATIONS AND HR MANAGER 09/24/2022 10:54 AM CONTROLLER OPERATIONS AND HR MANAGER us Kassi Velázquez M.D. LAB MICROBIOLOGY - BLOOD OR DERABLES Final Result [facility] [address] [place] [address] [facility] [address] [place] [address] * Lipid Panel (03/04/2014 2:40 PM CDT) Pathologist [facility] Cholesterol, Total 161 0 - 200 MGDL POWERCHART HX HDL 59.0 40.0 - 60.0 MGDL POWERCHART Triglycerides 119 0 - 150 MGDL POWERCHART Calculated LDL 78 0 - 100 MGDL POWERCHART Blood 03/04/2014 2:40 PM CDT us Jaylen Buchanan Jr., M.D. LAB BLOOD ADD-ON Final Result POWERCHART from Last 3 Months or Most Recently Relevant to Health Maintenance Insurance [facility] [place] [id number] Care Teams Senior Hardware Engineer Relationship Specialty Start Date End Date None Reported, Pcp PCP - General Family Medicine 01/24/24
--- OUTSIDE RECORDS SUMMARY | 2024-10-02 13:37 | XMS_ITS | Encounter Summary ---
Author Organization [facility] Address [address] [place] [address] Care Team Providers Care Golf Shoe Spike Assembler Name Role Phone None Reported, Pcp Primary Care Provider Unavail able Reason for Visit * Reason Comments Post-op Visit Encounter Details Date Type Department Care Team (Latest Contact Info) Description 07/06/2024 4:00 PM CDT Office Visit Department of Obstetrics and Gynecology in [place], [place] [address] [phone] Jaylen Buchanan Jr., M.D. [address] [place] [phone] Follow Up Examination Postoperative Visit (Primary Dx) Social History Tobacco Use Types Packs/Day Years Used Date Smoking Tobacco: Never Smokeless Tobacco: Never Tobacco Cessation:Counseling Given: Not Answered Alcohol Use Standard Drinks/Week Comments Yes 0 (1 standard drink = 0.6 oz pur e alcohol) 2 drinks a month [facility] Utilities Answer Date Recorded In the past 12 months has [employer], gas, oil, or water company threatened to shut off services in your [...] often do you attend chur ch or mu-ism services? Never 09/14/2022 Do you belong to any clubs o r organizations such as gnosticist groups, unions, fraternal or athletic groups, or [...] Answer Date Recorded PHQ-2 Score 3 06/17/2024 [facility] [place] of Occupat ional Health - Occupational Stress [...] your living situation today? I have a [facility] place to live 01/27/2024 Education Answer Date Recorded What is the highest level of school you have completed or the highest degree you have received? Some college, no degree 04/23/2019 Comments No Sex and Gender Information Value Date Recorded Sex Assigned at Female 09/14/2022 7:57 AM CDT Legal Sex Female 10:48 AM COLOR RECEIVER Gender Identity Female 01/26/2019 8:30 AM CDT Sexual Orientation Straight 01/26/2019 8: 30 AM CDT documented as of this encounter Last Filed Vital Signs Vital Sign Reading Time Taken Comments Blood Pressure 124/85 07/06/2024 3:26 PM CDT Pulse 90 07/06/2024 3:26 PM CDT Temperature - - Respiratory Rate - - Oxygen Saturation - - Inhaled Oxygen Concentration - - Weight 79.7 kg (175 lb 11.3 oz) 07/06/2024 3:26 PM CDT Height - - Body Mass Index 29.78 04/03/2024 8:34 AM CDT documented in this encounter Progress Notes * Jaylen Buchanan Jr., M.D. - 07/06/2024 4:00 PM CDT SUBJECTIVE CHIEF COMPLAINT/REASON FOR VISIT Postop HISTORY OF PRESENT ILLNESS Brooke Mcmahon is a 34 y.o. female who presents to the clinic for total laparoscopic hysterectomy with T OT on 04/15/2024. She is seen in the emergency department week or so ago with some right upper quadrant and rib pain CT scan and exam was normal and all symptoms have resolved. Bladder function is excellent she is not having any leaking and she feels like it works fine. She has not had intercourse yet. She says her energy is coming back and she feels pretty normal. Following upwith Dr. Monzon for medication changes. There are no further concerns at this time. ALLERGIES/CONTRAINDICATIONS Allergies Allergen Reactions Cephalexin Hives (Reselect Reaction) Sulfa (Sulfonamide Antibiotics) Hives (Reselect Reaction) OBJECTIVE VITAL SIGNS BP 124/85 (BP Location: Left arm, Patient Position: Sitting, Cuff Size: Regular) Pulse 90 Wt 79.7 kg LMP 03/31/2024 (Approximate) BMI 29.78 kg/m?? PHYSICAL EXAMINATION General: Patient appears well groomed and well nourished. No acute distress. Oriented times three. Abdomen: Incisions healing well. Pelvis: Vagina is healing well small area of granulation tissue at the top of the cuff is treated with silver nitrate. She does still have a little bit of tenderness at the cuff and the sutures and what totally resolved. Suburethral incision is totally healed and there is no UV angle hypermobility noted. Rectum: Deferred. Genitalia: External genitalia: Bartholin's, urethral, and [place]'s glands within normal limits. DIAGNOSTICS None. CT scan is reviewed. ASSESSMENT / PLAN Doing much better. She is going to wait another couple weeks to resume intercourse but then just let us know if she has any issues. Follow up annually earlier if needed. #1 Follow Up Examination Postoperative Visit documented in this encounter Plan of Treatment Not on file documented as of this encounter Visit Diagnoses Diagnosis Follow Up Examination Postoperative Visit- Primary documented in this encounter Additional Health Concerns Assessment Noted Time PHQ-9 Depression Total Score: 15 024 2:01 PM CDT documented as of this encounter Care Teams Golf Shoe Spike Assembler Relationship Specialty Start Date End Date None Reported, Pcp PCP - General Family Medicine 01/24/24 documented as of this encounter
--- OUTSIDE RECORDS SUMMARY | 2024-10-02 13:37 | XMS_ITS ---
Author Organization [facility] Address [address] [place] [address] Care Team Providers Care Wildlife Enforcement Major Name Role Phone Unavailable Unavailable Unavailable Surgery Details Not on file Complications Check Surgery Details section. Procedure Estimated Blood Loss Check Surgery Details section. Procedure Findings Check Surgery Details section. Procedure Specimens Taken Check Surgery Details section.
--- NOTE | 2024-10-02 14:00 | CRLHL7_ITS ---
For Patients: As a result of the Century Cures Act, medical imaging exams and procedure reports are released immediately into your electronic medical record. You may view this report before your referring provider. If you have questions, please contact your health care provider. CLINICAL HISTORY: Pelvic pain TECHNIQUE: Real time, [place] scale images were acquired of the pelvis using a transabdominal and transvaginal approach. Color Doppler analysis was performed of the ovaries. FINDINGS: Hysterectomy. The left ovary measures 3.4 x 2.2 x 2.1 centimeters blood flow to left ovary Right ovary measures 3.3 x 1.9 x 1.9 centimeters normal blood flow to the right ovary. There is a simple appearing cyst in both the right ovary in the left ovary measuring 1.8 centimeters on the right and 1.5 centimeters. No free fluid IMPRESSION: Bilateral simple appearing cysts in both ovaries. Normal blood flow to both ovaries. Dictated by Brandee Francis MD @ 10/05/2024 4:30:49 AM (Electronically Signed)
== END 2024-10-02 13:35 | disposition home or self-care (01) ==
LOC: US 13:35
PROVIDERS: PCP Family Medicine; Visit Provider Family Medicine
DX: R10.2 Pelvic and perineal pain (principal); N83.201 Unspecified ovarian cyst, right side; N83.202 Unspecified ovarian cyst, left side
CPT/HCPCS: 76830; 76856; 93976